=== PATIENT | male | born 1950 | race Native Hawaiian/Other Pacific Islander ===

== ENCOUNTER 2021-12-23 10:08 | Emergency (ER) | payer OTHER ==
[~2021-12-23] VITALS: Ht 195.6 cm; Wt 106.6 kg
[2021-12-23 10:08] VITALS: TEMP 96.8
[2021-12-23 13:30] VITALS: BP 165/92
== END 2021-12-23 13:30 | disposition home or self-care (01) ==
LOC: ED 10:25
DX: S00.81XA Abrasion of other part of head, initial encounter (principal); S20.221A Contusion of right back wall of thorax, initial encounter; V85.5XXA Driver of special construction vehicle injured in nontraffic accident, initial encounter; Y92.89 Other specified places as the place of occurrence of the external cause
CPT/HCPCS: 90471; 90715; 96374; 99284; J1885